=== PATIENT | female | born 1940 | race Caucasian/White ===

== ENCOUNTER 2020-03-07 19:11 | Inpatient (IN) | payer OTHER ==
[~2020-03-07] VITALS: Ht 165.1 cm; Wt 97.1 kg
[2020-03-07 19:13] VITALS: BP 148/119
[2020-03-07] MEDS ORDERED: ASA81BEC PO (19:37)
[2020-03-07] MEDS ORDERED: NORVASC 2.5 MG2.5 M1 PO (19:37)
[2020-03-07] MEDS ORDERED: LIPITOR 20 MG T20 M1 PO (19:38)
[2020-03-07] MEDS ORDERED: VOLTAREN GEL 1100 G2 TOP (19:40)
[2020-03-07] MEDS ORDERED: IRON325 M1 PO (19:41)
[2020-03-07] MEDS ORDERED: FLONASE 0.05%50 MCG NARES (19:42)
[2020-03-07] MEDS ORDERED: NEURONTIN 300M300 M2 PO (19:42)
[2020-03-07] MEDS ORDERED: HUMALOG KW100 UNIT/1 SUBQ (19:44)
[2020-03-07] MEDS ORDERED: NORCO 10-325 T1 EACH PO (19:44)
[2020-03-07] MEDS ORDERED: LEVO-T25 MCG PO (19:45)
[2020-03-07] MEDS ORDERED: IMDUR 60 MG TAB60 M1 PO (19:45)
[2020-03-07] MEDS ORDERED: COZAAR100 MG PO (19:46)
[2020-03-07] MEDS ORDERED: PROTONIX40 M2 PO (19:48)
[2020-03-07] MEDS ORDERED: NITROSTAT0.4 M1 SUBLING (19:48)
[2020-03-07] MEDS ORDERED: PHENERGAN 25 MG25 M1 PO (19:49)
[2020-03-07] MEDS ORDERED: PAXIL40 MG PO (19:49)
[2020-03-07] MEDS ORDERED: CARAFATE 1 GM TA1 GM PO (19:50)
[2020-03-07 19:51] LABS: HEMATOCRIT 50.9 % (37.0-47.0); HEMOGLOBIN 16.5 gm/dL (12.0-15.0); MCH 27.4 pg (26.0-34.0); MCHC 32.5 g/dL (28.0-37.0); MCV 84.4 fL (80.0-100.0); MPV 9.7 fl. (7.2-11.1); NUCLEATED RBCS 0 /100WBC; PLATELET COUNT* 495 thou/uL (150-400); RBC 6.02 mil/uL (4.20-5.00); RDW-CV 16.5 % (10.5-14.5)
[2020-03-07] MEDS ORDERED: ZANAFLEX4 M2 PO (19:52)
[2020-03-07 19:57] LABS: INR 1.1; PROTIME 11.1 Seconds (9.20-11.50)
[2020-03-07 20:01] LABS: CALCIUM 9.2 mg/dL (8.5-10.1); CREATININE 2.6 mg/dL (0.6-1.3); POTASSIUM 4.3 mmol/L (3.5-5.1)
[2020-03-07 20:04] LABS: ALBUMIN 3.8 g/dL (3.4-5.0); MAGNESIUM 1.6 mg/dL (1.8-2.4); TOTAL BILIRUBIN 0.6 mg/dL (<0.1-1.0)
[2020-03-07 20:19] LABS: ABSOLUTE LYMPHOCYTES 1.2 thou/uL (0.8-5.3); ABSOLUTE MONOCYTES 1.2 thou/uL (0.0-1.2); ABSOLUTE NEUTROPHILS 17.6 thou/uL (1.6-8.1)
[2020-03-07 20:20] LABS: LARGE PLATELETS OCCASIONAL; PLATELET ESTIMATE INCREASED
[2020-03-07 20:21] LABS: ANISOCYTOSIS 1+
[2020-03-07 21:37] LABS: BE -8.7 mmol/L (-2 to +3); PCO2 27.6 mmHg (35.0-45.0); PO2 86.5 mmHg (75.0-100.0); pH 7.354 (7.340-7.450)
[2020-03-07 21:43] LABS: URINE BLOOD 2+ (Negative); URINE CLARITY CLEAR; URINE COLOR YELLOW; URINE GLUCOSE-RANDOM 3+ (Negative); URINE KETONES 1+ (Negative); URINE LEUKOCYTES-REFLEX NEGATIVE (Negative); URINE NITRITE-REFLEX NEGATIVE (Negative); URINE PROTEIN 3+ (Negative); URINE SPECIFIC GRAVITY 1.025 (1.005-1.030); URINE UROBILINOGEN 0.2 E.U./dl (0.2-1.0)
[2020-03-07 21:50] LABS: ICTOTEST (BILI CONFIRMATORY) Negative (Negative); URINE BILIRUBIN 2+ (Negative)
[2020-03-07 21:52] LABS: HYALINE CASTS 0-3 Few /LPF (None Seen)
[2020-03-07 21:53] LABS: SQUAMOUS 0-3 Few /LPF (0-3)
[2020-03-07 21:54] LABS: AMORPHOUS URATES Moderate /LPF (None Seen); MUCUS None Seen strn/LPF (None Seen)
[2020-03-07 21:55] LABS: URINE RBC 0-2 Rare /HPF (0-2)
[2020-03-07 21:56] LABS: BACTERIA-REFLEX 1-9 Few /HPF (None Seen); URINE WBC-REFLEX 0-5 Rare /HPF (0-5)
[2020-03-07 22:49] VITALS: BP 169/101
[2020-03-07 23:20] VITALS: BP 172/104
[2020-03-08] VITALS (34 sets, daily range): BP systolic 95–210; BP diastolic 50–131
[2020-03-08] MEDS ORDERED: NORCO 5-325 TA1 EAC2 PO (00:04)
[2020-03-08] MEDS ORDERED: NOVOLIN R100 UNIT/1 SUBQ ×2 (00:06)
[2020-03-08] MEDS ORDERED: OMEPRAZOLE40 MG PO (00:07)
--- NOTE | 2020-03-08 07:28 | NUR ---
RECEIVED REPORT FROM SUPERVISOR PIPELINE MAINTENANCE ANTOINETTE AT 9175. PT ARRIVED TO UNIT AT 2300. UNABLE TO ANSWER ADMISSION QUESTIONS. SPOKE WITH PT VLADIMIR SHELLEY THIS AM AND ABLE TO ANSWER PT HX. STATES THAT PATIENT LIVES ALONE BUT JOSE J DOES CHECK ON HER FREQUENTLY. PT IS NORMALLY AAOX4 WITH FORGETFULNESS AT TIMES AND ANXIETY AT NIGHT. PT CONTINUES TO BE CONFUSED, UNABLE TO ANSWER QUESTIONS APPROPRIATELY. Q1H ACCU CHECKS COMPLETED. Q2H REPOSITIONING COMPLETED. SCDS IN PLACE. SR ON MULTIPLE NEEDLE STITCHER.
[2020-03-08 07:57] LABS: BE -4.8 mmol/L (-2 to +3); PCO2 31.8 mmHg (35.0-45.0); PO2 83.6 mmHg (75.0-100.0); pH 7.392 (7.340-7.450)
[2020-03-08 09:03] LABS: HEMATOCRIT 43.3 % (37.0-47.0); MCH 27.7 pg (26.0-34.0); MCHC 33.8 g/dL (28.0-37.0); MPV 8.7 fl. (7.2-11.1); RBC 5.29 mil/uL (4.20-5.00); RDW-CV 16.9 % (10.5-14.5); WBC 20.1 thou/uL (4.0-11.0)
[2020-03-08 09:04] LABS: HEMOGLOBIN 14.6 gm/dL (12.0-15.0)
[2020-03-08 09:16] LABS: CALCIUM 8.9 mg/dL (8.5-10.1); CREATININE 2.6 mg/dL (0.6-1.3); POTASSIUM 3.6 mmol/L (3.5-5.1)
--- NOTE | 2020-03-08 13:21 | EKG ---
[place] [address] ELECTROCARDIOGRAM REPORT Name: JAIRONTERESA Wilkerson Room: [address] ADM IN .R.#: [id number] Admission: 03/07/20 Attend Phys: Che Torre, Discharge: Date of : 42 Date of Service: 03/07/201922 Report #: [id number] THIS REPORT FOR: //name// [facility] ED Test Date: 2020-03-07 Test Time: 19:23:41 Pat Name: TERESA DE LA O Department: Room: [facility] Gender: F Manager Women: MALLORY : 1940 Requested By: Smitha Hardign Order Number: [id number] MD: Mack Leone Measurements Intervals [place] Rate: 114 P: 61 WV: 138 QRS: -15 QRSD: 82 T: 44 QT: 328 QTc: 452 Interpretive Statements Sinus tachycardia Borderline left axis deviation No previous ECG available for comparison Electronically Signed On 03-08-2020 13:20:54 CDT by Mack Loene [email or web address] <ELECTRONICALLY SIGNED> By: Mack Leone MD, [facility] 03/08/20 1320 1923 Mack Leone MD, [facility] /EPI
--- NOTE | 2020-03-08 14:19 | 2DMMODE ---
[place] [address] 2 D/M-MODE ECHOCARDIOGRAM Name: TERESA DE LA O Rock Room: [address] IN [facility]#: [id number] Admission: 03/07/20 Attend Phys: Che Torre, Discharge: Date of : 42 Date of Service: 03/08/20 1418 Report #: [id number] THIS REPORT FOR: cc: Taurus Manjarrez MD, Jonathan MD List[place],Ulises Ortez MD [facility] ~ APPROVED REPORT Study performed: 03/08/2020 10:24:47 EXAM: Comprehensive 2D, Doppler, and color-flow Echocardiogram Patient Location: In-Patient Room #: [facility] Status: routine BSA: 2.04 HR: 91 bpm BP: 188/105 mmHg Rhythm: NSR Other Information Study Quality: Good Indications elevated bnp 2D Dimensions IVSd: 13.15 (7-11mm) LVOT Diam: 19.09 (18-24mm) LVDd: 46.91 mm PWd: 10.20 (7-11mm) Ascending Ao: 30.58 (22-36mm) LVDs: 22.82 (25-40mm) Aortic Root: 27.50 mm Volumes Left Atrial Volume (Systole) LA ESV Index: 19.90 mL/m2 Aortic Valve AoV Peak Geraldo.: 1.88 m/s AO Peak Gr.: 14.08 mmHg LVOT Max P.94 mmHg AO Mean Gr.: 7.22 mmHg LVOT Mean P.30 mmHg LVOT Max V: 1.41 m/s AO V2 VTI: 34.75 cm LVOT Mean V: 0.82 m/s THU (VTI): 2.38 cm2 LVOT V1 VTI: 28.95 [place] [address] 2 D/M-MODE ECHOCARDIOGRAM Name: TERESA DE LA O Room: [address]#: [id number] Admission: 03/07/20 Attend Phys: Che Torre, Discharge: Date of : 42 Date of Service: 03/08/20 1418 Report #: [id number] Mitral Valve E/A Ratio: 0.59 MV Decel. Time: 333.58 ms MV E Max Geraldo.: 0.72 m/s MV PHT: 96.74 ms MVA (PHT): 2.27 cm2 TDI E/Lateral E': 9.00 E/Medial E': 10.29 Medial E' Geraldo.: 0.07 m/s Lateral E' Geraldo.: 0.08 m/s Pulmonary Valve PV Peak Geraldo.: 1.24 m/s PV Peak Gr.: 6.13 mmHg Left Ventricle The left ventricle is normal size. There is normal LV segmental wall motion. There is normal left ventricular wall thickness. Left ventricular systolic function is vigorous. LVEF is >70%. Grade I - abnormal relaxation pattern. Right Ventricle The right ventricle is normal size. The right ventricular systolic function is normal. Atria The left atrium size is normal. The right atrium size is normal. Aortic Valve Mild aortic valve sclerosis. No aortic regurgitation is present. There is no aortic valvular stenosis. Mitral Valve The mitral valve is normal in structure. There is no mitral valve regurgitation noted. No evidence of mitral valve stenosis. Tricuspid Valve The tricuspid valve is normal in structure. Trace tricuspid regurgitation. Unable to assess PA pressure. Pulmonic Valve The pulmonary valve is normal in structure. There is no pulmonic valvular regurgitation[place] [address] 2 D/M-MODE ECHOCARDIOGRAM Name: TERESA DE LA O Room: [address] IN [facility]#: [id number] Admission: 03/07/20 Attend Phys: Che Torre, Discharge: Date of : 42 Date of Service: 03/08/20 1418 Report #: [id number] The aortic root is normal in size. IVC is normal in size and collapses >50% with inspiration. Pericardium There is no pericardial effusion. <Conclusion> The left ventricle is normal size. There is normal left ventricular wall thickness. Left ventricular systolic function is vigorous. LVEF is >70%. Grade I - abnormal relaxation pattern. Trace tricuspid regurgitation. IVC is normal in size and collapses >50% with inspiration. <ELECTRONICALLY SIGNED> By: Ulises Pierce MD, FACC 03/08/20 1418 1418 1418 Ulises Pierce MD, FACC /INF
--- NOTE | 2020-03-08 16:00 | NUR ---
PT.HAVING EGD. SPOKE WITH DAUGHTER,JOSE J HERRERA ON PHONE EARLIER. SHE IS ALSO HER DPOA. SHE SAID HER MOM LIVES ALONE. SHE CHECKS ON HER FREQUENTLY. SHE SEEMS VERY SUPPORTIVE. SHE SAID PT. IS SOMEWHAT FORGETFULL BUT IS ALERT AND ORIENTED DURING THE DAY. AT NIGHT HER CONFUSION INCREASES AND SHE GETS NERVOUS/ANXIOUS AT TIMES. SHE USES A CANE FOR ASSIST WITH MOBILITY. WILL MOST LIKELY NEED SNF AT DISCHARGE. WILL DISCUSS WHEN MORE STABLE.
--- NOTE | 2020-03-08 18:47 | NUR ---
ASSESSMENT CHARTED. VSS. PATIENT ALERT BUT DISORIENTED X4. ABLE TO FOLLOW SIMPLE COMMANDS AND GIVE YES/NO ANSWERS. PATIENT IMPULSIVE AT TIMES AND REQUIRES BED ALARM. LEON PULLED OUT BY PATIENT. WILL CONTINUE TO MONITOR FOR RETENTION. PATIENT WENT FOR EGD AT 1530. PLEASE SEE PROCEDURE REPORT. PATIENT DOING WELL. VSS AT THIS TIME. PRN HYDRALAZINE AND SCHEDULED METOPROLOL GIVEN FOR HR/BP CONTROL. NO COMPLAINTS OF PAIN. Q2H TURNS. BATH GIVEN. NO OTHER COMPLAINTS DURING THIS SHIFT. DAUGHTER AT THE BEDSIDE MOST AFTERNOON SO SHE HAS BEEN UPDATED.
[2020-03-09] VITALS (41 sets, daily range): BP systolic 136–227; BP diastolic 54–140
--- NOTE | 2020-03-09 06:02 | NUR ---
PT. NOT PROGRESSING TOWARDS GOALS. PROVIDER NOTIFIED X2 ABOUT ELEVATED BLOOD PRESSURE, CLONIDINE PATCH ORDERED AND FENTANYL ORDERED. HYDRALAZINE AND METOPROLOL GIVEN. PT. IS UNABLE TO FORM SENTENCES SO UNABLE TO ASSESS WHERE AND IF PT. IS HURTING. WAS ABLE TO SAY "OUCH" "YES" "NO" AND "OHHH". WAS ABLE TO FOLLOW COMMANDS, EQUAL HYDROELECTRIC STATION OPERATOR STRENGTHS AND EQUAL PUPILS ASSESSED. WILL CONTINUE TO MONITOR.
[2020-03-09 07:38] LABS: HEMATOCRIT 42.7 % (37.0-47.0); HEMOGLOBIN 13.8 gm/dL (12.0-15.0); MCH 27.1 pg (26.0-34.0); MCHC 32.3 g/dL (28.0-37.0); MCV 84.1 fL (80.0-100.0); MPV 9.4 fl. (7.2-11.1); RBC 5.07 mil/uL (4.20-5.00); RDW-CV 16.8 % (10.5-14.5); WBC 16.4 thou/uL (4.0-11.0)
[2020-03-09 07:53] LABS: ALBUMIN 3.2 g/dL (3.4-5.0); CALCIUM 8.4 mg/dL (8.5-10.1); CREATININE 2.3 mg/dL (0.6-1.3); MAGNESIUM 1.5 mg/dL (1.8-2.4); POTASSIUM 3.2 mmol/L (3.5-5.1); TOTAL BILIRUBIN 0.5 mg/dL (<0.1-1.0); TOTAL PROTEIN 7.3 g/dL (6.4-8.2)
--- NOTE | 2020-03-09 12:43 | NUR ---
RIGHT BASILIC VESSEL ACCESSED FOR 5 PARAGUAYAN DUAL LUMEN PICC. LINE PRE-TRIMMED TO 38 CM AND ADVANCED TO THE ZERO EDITA WITH NO RESISTANCE MET. UPPER ARM CIRCUMFERENCE ABOVE INSERTION SITE= 14 1/2". SHERLOCK MAGNET AND 3CG CONFIRMATION OF TIP AT THE CAVOATRIAL JUNCTION APPRECIATED. GUIDEWIRE REMOVED, LINE FLUSHED AND INSERTION SITE DRESSED. REPORT GIVEN TO YADI.
[2020-03-09 13:14] LABS: CALCIUM 8.1 mg/dL (8.5-10.1); CREATININE 2.1 mg/dL (0.6-1.3); POTASSIUM 3.6 mmol/L (3.5-5.1)
--- NOTE | 2020-03-09 15:33 | NUR ---
ICU rounds: Covid negative. Treating PNA. Pt out of it, normally A&O. Pt leaving unit for a CT of head. UTI. EGD done yesterday, it was fine. Gastric emptying attempted today, Pt started gagging so they stopped it. Following,
--- NOTE | 2020-03-09 18:20 | NUR ---
ASSESSMENT CHARTED. VSS. BP MEDS INCREASED AND BLOOD PRESSURE IS TRENDING DOWN. BLOOD SUGARS WELL CONTROLLED WELL. RENAL CONSULTED. CT HEAD DONE. GASTRIC EMPTYING STUDY NOT SUCCESSFUL PATIENT STARTED GAGGING ON THE EGGS. ELECTROLYTES REPLACED PER RENAL-LABS IN AM. PICC LINE PLACED. NO OTHER EVENTS DURING THIS SHIFT.
[2020-03-10] VITALS (20 sets, daily range): BP systolic 123–183; BP diastolic 51–81
[2020-03-10 02:06] LABS: GLYCOHEMOGLOBIN (HGB A1C) 8.3 % (4.8-5.6)
[2020-03-10 05:22] LABS: HEMATOCRIT 37.3 % (37.0-47.0); HEMOGLOBIN 12.4 gm/dL (12.0-15.0); MCH 27.7 pg (26.0-34.0); MCHC 33.3 g/dL (28.0-37.0); MPV 9.1 fl. (7.2-11.1); RBC 4.49 mil/uL (4.20-5.00); RDW-CV 17.3 % (10.5-14.5); WBC 11.6 thou/uL (4.0-11.0)
[2020-03-10 05:47] LABS: ALBUMIN 2.7 g/dL (3.4-5.0); CALCIUM 8.3 mg/dL (8.5-10.1); CREATININE 1.9 mg/dL (0.6-1.3); MAGNESIUM 1.9 mg/dL (1.8-2.4); PHOSPHORUS* 2.6 mg/dL (2.5-4.9); POTASSIUM 3.1 mmol/L (3.5-5.1); TOTAL BILIRUBIN 0.5 mg/dL (<0.1-1.0); TOTAL PROTEIN 6.4 g/dL (6.4-8.2)
--- NOTE | 2020-03-10 05:53 | NUR ---
PT. SOMEWHAT PROGRESSING TOWARDS GOALS. STILL ABLE TO ONLY RESPOND YES/NO, BUT ABLE TO FOLLOW COMMANDS. BP'S REMAIN ELEVATED BUT CONTROLLED. RIGHT UPPER ARM PICC SALINE LOCKED AT THIS TIME. WILL CONTINUE TO MONITOR.
--- NOTE | 2020-03-10 13:30 | NUR ---
PATIENT BACK FROM IR PROCEDURE.
--- NOTE | 2020-03-10 14:12 | NUR ---
REPORT GIVEN TO RENATO GONZALEZ. ALL QUESTIONS ANSWERED. DAUGHTER CALLED TO LET HER KNOW PATIENT IS MOVING TO ROOM 206. PATIENT MOVED BY BED WITH NURSING STAFF AT THIS TIME.
--- NOTE | 2020-03-10 15:23 | NUR ---
ICU rounds: Tele status. Pt able to hold a conversation. Gastric emptying tomorrow. MRI today.
--- NOTE | 2020-03-10 18:49 | NUR ---
PT TRANSFERED [facility] ICU TO [facility]. ON RA. ACCUCHECK. INSULIN GIVEN AT DINER TIME. PT COMPLAINS OF NAUSEA/ ZOFFRAN GIVEN . ONETIME DOSE OF ZOFRAN ORDERED FOR 1899 WAS NOT GIVEN BECAUSE ZOFRAN WWAS ALREADY GIVEN. POTASSIUM REPLACED ORDERED. CALL LIGHT AT [facility]. WILL CONTINUE TO MONITOR
--- NOTE | 2020-03-10 18:56 | NUR ---
SBP 182.NEXT DOSE OF HYDRALIZINE DUE AT 2000
[2020-03-11] VITALS (7 sets, daily range): BP systolic 101–193; BP diastolic 47–92
[2020-03-11 05:18] LABS: HEMATOCRIT 37.9 % (37.0-47.0); HEMOGLOBIN 12.6 gm/dL (12.0-15.0); MCHC 33.2 g/dL (28.0-37.0); MCV 84.4 fL (80.0-100.0); MPV 9.6 fl. (7.2-11.1); RBC 4.49 mil/uL (4.20-5.00); RDW-CV 16.7 % (10.5-14.5); WBC 8.4 thou/uL (4.0-11.0)
[2020-03-11 06:16] LABS: CALCIUM 8.2 mg/dL (8.5-10.1); CREATININE 1.8 mg/dL (0.6-1.3); MAGNESIUM 1.7 mg/dL (1.8-2.4); POTASSIUM 3.9 mmol/L (3.5-5.1)
--- NOTE | 2020-03-11 11:52 | NUR ---
CM spoke with Pt regarding dispo, Pt hopeful to be able to return home at dc. Pt stated that her sister will come and stay with her post dc. PT/OT ordered. Pt may benefit from HH at dc, and Pt is open to HH if needed. If Pt dc over the weekend and needs HH, fax HH orders, facesheet and H&P to [facility] p:[phone] f:[phone]
[2020-03-12] VITALS: BP 106/64
[2020-03-12 04:33] VITALS: BP 184/64
[2020-03-12 06:00] LABS: CALCIUM 8.4 mg/dL (8.5-10.1); CREATININE 1.6 mg/dL (0.6-1.3); MAGNESIUM 1.6 mg/dL (1.8-2.4); POTASSIUM 3.9 mmol/L (3.5-5.1)
[2020-03-12 06:29] VITALS: BP 150/62
--- NOTE | 2020-03-12 07:02 | NUR ---
Pt persistently hypertensive throughout shift. Pt's bp was 190/75 at 2000 v/s 10 mg hydralazine IVP was administered. On reassessment BP had decreased to 131/75. At 0400 v/s pt's bp was 184/64. 10 mg hydralazine IVP was administered again. On reassessment bp was 150/62. Shift otherwise uneventful. Pt aox4, running SA on telemetry, respirations are even and unlabored on room air. Pt is medically stable at this time.
--- NOTE | 2020-03-12 10:52 | CON ---
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 The patient actually is admitted with altered mental status. I do not know what her baseline is, but she still appeared to be confused. Emergency Room note was reviewed. It looks like she had GI symptoms and that has been her main complaint. She had nausea, vomiting and she was vomiting blood, it looks like. She also has acute renal injury. Overall, it looks like she has improved since she came in. REVIEW OF SYSTEMS: A 14-point review of systems was carried out. She has GI issues. She has a history of diabetes, pneumonia and hyperglycemia and MRI was done mainly because of the patient's altered mental status. We will also try to reach the family to get some more history in this patient because the patient did not provide much history and this history is by reviewing the record. A 14-point review of system was carried out as best as could and this was her 14-point review of systems. PAST MEDICAL HISTORY: Positive for GI problem. FAMILY HISTORY: Noncontributory. SOCIAL HISTORY: We will try to find out when we talked to the family. PHYSICAL EXAMINATION: She is alert. She is responsive. When I asked her what month it is, she does not answer and basically smiled. Her speech looks intact. Cranial nerve and neuromuscular examination was carried out, the best I could. There was no focality. She did not do the cerebellar sign for me. There is no meningeal sign. There is no thyroid mass. Blood pressure is 182/81, respirations 17, pulse is 74, temperature is 97.6. LABORATORY DATA: White count is 11.6. 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 That needs to be addressed and it is usually a difficult problem. No Neurosurgery comes here and I will talk to the daughter tomorrow. It is an incidental [place] [address] CONSULTATION Name: TERESA DE LA O Room: [address] IN [facility]#: [id number] Admission: 03/07/20 Attend Phys: Che Torre MD Discharge: Date of : 42 Report #: [id number] be addressed, but the patient needs to stabilize first. Then, she needs a Neurosurgery consult. We will talk this over to the patient's daughter. Thank you very much. <ELECTRONICALLY SIGNED> By: Dwayne Stephen MD 03/12/20 1052 1920 [id number] Stephen MD /nt
[2020-03-12 13:36] VITALS: BP 148/72
[2020-03-12 17:47] VITALS: BP 185/69
[2020-03-12 20:00] VITALS: BP 157/63
[2020-03-13 00:42] VITALS: BP 179/65
[2020-03-13 04:00] VITALS: BP 181/74
[2020-03-13 06:25] VITALS: BP 166/69
--- NOTE | 2020-03-13 07:26 | NUR ---
Pt hypertensive at 0400 v/s bp was 185/69
--- NOTE | 2020-03-13 07:27 | NUR ---
Pt hypertensive at 0400 v/s bp was 185/69. 10 mg hydralazine IVP was administered. On reassessment bp was 166/69. At 0500 pt reported 10/10 head pain. 1 tab 5/325 hydrocondone and 1000 mg tylenol were administered. On reassessment pt reported no relief. Dr. Cid was paged and 50 mcg q4h prn was ordered and administered at 0650. Pt is aox3, running SR on telemetry, respirations are even and unlabored on room air. Pt is medically stable at this time.
[2020-03-13 12:24] VITALS: BP 157/73
--- NOTE | 2020-03-13 17:18 | NUR ---
patinet resting in bed. up with assist x1. aox4. medications per orders. vss and patient innoapparnet signs of distress. accuchecks with sliding scale insulin. hourly ronding completd for patient safety.
[2020-03-13 20:00] VITALS: BP 193/86
[2020-03-14] VITALS: BP 157/71
[2020-03-14 04:00] VITALS: BP 145/66
[2020-03-14 05:14] LABS: CALCIUM 8.4 mg/dL (8.5-10.1); CREATININE 1.5 mg/dL (0.6-1.3); MAGNESIUM 1.6 mg/dL (1.8-2.4); POTASSIUM 3.9 mmol/L (3.5-5.1)
--- NOTE | 2020-03-14 06:18 | NUR ---
ASSUMED PT CARE AT 1910. NURSING ASSESSMENT COMPLETED AT START OF SHIFT. SR ON PUTTY AND PATCH WORKER. PRN PAIN MEDICATION ADMINISTERED THIS SHIFT. SEE EMAR FOR DOCUMENTATION. HOURLY ROUNDING COMPLETED. HIGH FALL PRECAUTIONS IN PLACE.
--- NOTE | 2020-03-14 11:15 | NUR ---
CM spoke with Pt, Pt wants to dc home. CM discussed her limited ability level with PT and informed Pt that CM would speak with Pt's dtr. Per dtr, Pt's sister would only be able to stay with Pt in the evenings and dtr could help, but states that she works 3 days/week. Per dtr, Pt needs to be able to ambulate prior to return home. CM discussed possible need for SNF, dtr in agreement if Pt is unable to ambulate. Therapies went to work with Pt today and Pt adamently refused. Per weekend PN, Pt may need to transfer for neurosurgery, awaiting decision to initiate. Dtr is planning to call and make an outpt appt with neurosurgery. Dtr states that she just got Pt a commode. With dtr's permission, CM to fax SNF referrals to [place] and [facility], in anticipation that Pt will need rehab at or. Following.
[2020-03-14 12:12] VITALS: BP 156/58
--- NOTE | 2020-03-14 15:15 | H ---
[place] [address] HISTORY AND PHYSICAL Name: TERESA DE LA O Room: [address] IN M.R.#: [id number] Admission: 03/07/20 Attend Phys: Che Torre MD Discharge: Date of : 42 Report #: [id number] THIS REPORT FOR: //name// cc: Taurus Manjarrez MD, Jonathan MD ~ THIS REPORT FOR: //name// CC: Taurus Torre MD DATE OF SERVICE: 03/08/2020 REFERRING PHYSICIAN: Che Torre MD REASON FOR CONSULTATION: Recurrent nausea and vomiting. IMPRESSION: 1. Recurrent nausea and vomiting with history of coffee-ground emesis. 2. Dehydration secondary to recurrent nausea and vomiting with history of coffee-ground emesis. 3. Acute mental status changes secondary to recurrent nausea and vomiting with history of coffee-ground emesis and hyperglycemia and other issues. 4. Right lower lobe pneumonia. 5. Diabetes. 6. Chronic kidney disease, stage 3. 7. History of iron deficiency anemia with recent workup within the last year by [facility]. RECOMMENDATIONS: 1. We will keep the patient n.p.o. at this point in time. 2. We will proceed with upper endoscopy today. 3. We have the patient empirically on Protonix 40 mg IV q. 12 hours. 4. We will request all records from [facility] including upper and lower endoscopy, pathology reports and office visit within the last year for review. 5. We will also request records from [facility] from August of this year when she was hospitalized for similar type problems. 6. Eventually, she will likely need to have a 4-hour gastric emptying scan due to these issues with nausea, vomiting, early satiety and weight loss. I have discussed the plans with the patient's daughter and she is agreeable for me to proceed. HISTORY OF PRESENT ILLNESS: The patient is a 79-year-old white female who was admitted to the hospital with mental status changes and [place]. [place] [address] HISTORY AND PHYSICAL Name: TERESA DE LA O Rock Room: [address] IN [facility].#: [id number] Admission: 03/07/20 Attend Phys: Che Torre MD Discharge: Date of : 42 Report #: [id number] been able to give us much of any history, so I contacted her daughter to get some help. The patient has apparently not been doing well and has had some issues with recurrent nausea, vomiting and her blood sugars have been out of control. There was some question that she may have had some hematemesis as well. Her daughter states that she has had issues with her stomach and having problems with throwing up. This has been making her blood sugars out of control as well. She cannot give much of a history and answers everything yes. The patient already has undergone evaluation by [facility] within the last year including upper and lower endoscopies for evaluation of her anemia and I will request old records. In talking with the daughter, the patient had been having problem with nausea, vomiting and was thought to possibly related to her lap band. For this reason, it was subsequently removed and she still had issues with nausea and vomiting. ALLERGIES: None. MEDICATIONS: At home, which has been confirmed with the daughter include amlodipine, aspirin, atorvastatin, diclofenac gel, ferrous sulfate, Flonase, Neurontin, Humalog insulin, Imdur, levothyroxine, Cozaar, Nitrostat, Protonix twice daily, Paxil, Carafate, Zanaflex. She has been taking some Phenergan with nausea and vomiting. She takes Cerro. She also takes Novolin insulin. PAST MEDICAL HISTORY: Remarkable for underlying hypertension, hyperlipidemia, diabetes, chronic anemia. She has a problem with peripheral neuropathy, hypothyroidism, history of arthritis, gout. SOCIAL HISTORY: The patient is a smoker, smokes about half pack per day, does not drink alcohol. FAMILY HISTORY: Negative. PHYSICAL EXAMINATION: GENERAL: Revealed a 79-year-old white female who is in no distress. She is confused. She cannot answer questions reliably. CARDIOPULMONARY: Revealed regular rate and rhythm. LUNGS: Clear with diminished breath sounds at the right base. ABDOMEN: Soft and not tender. No rebound or guarding noted. LABORATORY DATA: From the revealed white count of 20.1, hemoglobin 14.6, platelet count 421,000, MCV is 82 and RDW 16.9. When she was admitted last night, her hemoglobin was 16.5, so she was definitely hemoconcentrated. Her sodium 139, potassium 3.6, chloride 101, bicarbonate is 24, BUN is 45 and creatinine 2.6 for GFR of only 18. Bilirubin on admission was 0.6, alkaline phosphatase was 147, AST 11, ALT 18, albumin 3.8, total protein was 9.0, but that was erroneous as the patient [place] [address] HISTORY AND PHYSICAL Name: TERESA DE LA O Room: [address]#: [id number] Admission: 03/07/20 Attend Phys: Che Torre MD Discharge: Date of : 42 Report #: [id number] scan of the abdomen and pelvis performed on 03/07 was reviewed. Liver appeared normal. Bile ducts are normal. Gallbladder could not be seen. The pancreas, spleen appeared normal. There appeared to be some mild thickening of the adrenal gland suggesting hyperplasia. Kidneys were unrevealing except for a small cyst. There was a small hiatal hernia. Otherwise, the examination was fairly unremarkable. DISCUSSION: At the present time, the patient has had recurrent nausea and vomiting. We will proceed with upper endoscopy today and likely need an emptying scan as well. <ELECTRONICALLY SIGNED> By: Jeramy Peacock DO 03/14/20 1515 1917 99Jeramy Peacock DO /nt
[2020-03-14 16:38] VITALS: BP 152/77
--- NOTE | 2020-03-14 18:15 | NUR ---
PATIENT RESTING IN BED. UP WITH ASSIST X1. NEW MEDICATIONS FOR GOUT FLARE. VSS. SEDRICKAGUSTO STILL REPORTS DIZZINESS WITH MOTION. AWAITING INSUR AUTH FOR DISCHARGE TO [place]. HOURLY ROUNDING FOR PATIENT SAFETY.
[2020-03-14 20:00] VITALS: BP 131/61
[2020-03-14 23:25] VITALS: BP 150/83
[2020-03-15 04:00] VITALS: BP 164/67
[2020-03-15 06:32] LABS: HEMATOCRIT 32.5 % (37.0-47.0); HEMOGLOBIN 10.8 gm/dL (12.0-15.0); MCH 27.9 pg (26.0-34.0); MCHC 33.1 g/dL (28.0-37.0); MCV 84.4 fL (80.0-100.0); MPV 9.9 fl. (7.2-11.1); RBC 3.85 mil/uL (4.20-5.00); RDW-CV 16.9 % (10.5-14.5); WBC 12.5 thou/uL (4.0-11.0)
--- NOTE | 2020-03-15 06:46 | NUR ---
RECEIVED REPORT AND ASSUMED CARE AT 1900.VSS. CARDIAC MONITORING IN PLACE DENIES COMPLAINTS OF PAIN. ASSESSMENT COMPLETED CHARTED. NO ACUTE CHANGES THROUGH THE NIGHT R/T PT CONDITION. PATIENT REPORTS FEET FEELING BETTER THIS MORNING. PT REQUESTED TO HAVE LEON REMOVED, ATTEMPTED TO PULL OUT ON HER OWN, NURSING REMOVED LEON. BED LOCKED IN LOWEST POSITION, CALL LIGHT WITHIN REACH. BED ALARM ON. HOURLY ROUNDING COMPLETED AND ALL NEEDS MET.
[2020-03-15 08:00] VITALS: BP 151/70
--- NOTE | 2020-03-15 12:07 | NUR ---
Continue to await insurance auth for skilled.
[2020-03-15 12:39] VITALS: BP 123/69
[2020-03-15] MEDS ORDERED: ERYTHROMYCIN250 M1 PO (14:11)
[2020-03-15] MEDS ORDERED: TRANSDERM-SCOP1 EACH TRANSDERM (14:11)
--- NOTE | 2020-03-15 18:14 | NUR ---
PT. AOX4, DENIES PAIN, VSS, SR ON MONITOR. D/C ORDERS RECEIVED. DISCHARGE SUMMARY AND CARENOTES PROVIDED. MEDS, ACTIVITY, DIET RESTRICTIONS EXPLAINED TO PT AND DAUGHTER, AND VERBALIZED UNDERSTANDING. PICC DCED WITHOUT COMPLICATIONS. PT. LEFT VIA WC TO ER ENTRANCE AND PICKED UP BY DAUGHTER IN PERSONAL CAR. PT. IN STABLE CONDITION AT TIME OF DC.
--- NOTE | 2020-03-26 13:14 | CON ---
[address] [address] CONSULTATION Name: TERESA DE LA O Room: [address] IN .R.#: [id number] Admission: 03/07/20 Attend Phys: Che Torre MD Discharge: 03/15/20 Date of : 42 Report #: [id number] THIS REPORT FOR: //name// cc: Taurus Manjarrez MD, Jonathan MD ~ THIS REPORT FOR: //name// CC: Taurus Torre CONSULTING PHYSICIAN: Dr. Torre. REASON FOR CONSULTATION: Acute kidney injury. HISTORY OF PRESENT ILLNESS: A 79-year-old female admitted with altered mental status and elevated creatinine of 2.6. Unknown if she has any underlying kidney disease. She is a very limited historian at this time. She has some dysphagia, had an EGD done and GI is currently following. She appears to be comfortable, does not have any complaints at present time. She was started on antibiotics for possible pneumonia. REVIEW OF SYSTEMS: Constitutional, psych, heme, eyes, ENT, respiratory, cardiac, GI, , endocrine, all negative except as documented above. PAST MEDICAL HISTORY: Diabetes, hypertension, osteoarthritis, dyslipidemia, gout. SOCIAL HISTORY: Former smoker. FAMILY HISTORY: Not pertinent in this 79-year-old female. CURRENT MEDICATIONS: Reviewed. PHYSICAL EXAMINATION: VITAL SIGNS: Blood pressure is 165/79, pulse 68, respirations 14, temperature 36.3. GENERAL: No acute distress. EYES: Open. EARS: Externally normal. NECK: Supple. CARDIOVASCULAR: Regular rate. LUNGS: No crackles. ABDOMEN: Soft. MUSCULOSKELETAL: Nontender. PSYCHIATRIC: Awake, not oriented. LABORATORY DATA: Sodium 145, potassium 3.6, chloride 109, bicarbonate 27, BUN [facility] [address] [place] [address] CONSULTATION Name: TERESA DE LA O Rock Room: [address]#: [id number] Admission: 03/07/20 Attend Phys: Che Torre MD Discharge: 03/15/20 Date of : 42 Report #: [id number], creatinine 2.1, glucose 176, calcium 8.1. White cell count 16.4, hemoglobin 13.8, platelets 397. ASSESSMENT: 1. Acute kidney injury with an admission creatinine of 2.6 in the setting of pneumonia, ARB, EF was greater than 70%. CT abdomen did not reveal any hydronephrosis. Baseline creatinine is unknown. UA shows 3+ protein, 2+ blood. 2. Anion gap metabolic acidosis with respiratory alkalosis on admission with an ABG of 7.39, 28 and 15 on 03/07/2020 with an anion gap of 23 and a normal delta gap. 3. Insulin-dependent diabetes. 4. Right 8 mm renal cysts without complex features noted on CT scan. 5. Pneumonia. 6. Hypertension. 7. Osteoarthritis. PLAN: 1. Currently on antibiotics. 2. She has been cleared for a diet. We will not administer any IV fluids at this time. 3. Check CK. 4. Check urine protein to creatinine ratio. 5. Hypokalemia. Had potassium of 3.2 earlier, this was replaced. 6. Hypernatremia. She was given an infusion of D5W and her sodium is now better. 7. Hypomagnesemia. Magnesium was replaced. 8. We will check labs again in the a.m. and continue to follow along with you. Thank you for requesting my opinion in the care and management of this patient. <ELECTRONICALLY SIGNED> By: Nathalie Bolden MD 03/26/20 1314 1521 [id number] Bolden MD /nt
== END 2020-03-15 16:56 | disposition home health service (06) | DRG 871 ==
LOC: M.ERS 19:11 → M.ICU 21:27 → M.2W 21:27 → M.TBA-ER 21:27 → M.ICU 23:10 → M.2W 03-10 14:40
PROVIDERS: Emergency Medicine; Internal Medicine; Internal Medicine Gastroenterology; ADMIT Internal Medicine; ATTEND Internal Medicine
DX: A41.9 Sepsis, unspecified organism (principal); E11.10 Type 2 diabetes mellitus with ketoacidosis without coma; J15.6 Pneumonia due to other Gram-negative bacteria; G93.41 Metabolic encephalopathy; G93.5 Compression of brain; I50.33 Acute on chronic diastolic (congestive) heart failure; N17.9 Acute kidney failure, unspecified; E87.0 Hyperosmolality and hypernatremia; K92.0 Hematemesis; E87.4 Mixed disorder of acid-base balance; G95.20 Unspecified cord compression; N39.0 Urinary tract infection, site not specified; R13.10 Dysphagia, unspecified; E78.5 Hyperlipidemia, unspecified; M10.9 Gout, unspecified; N28.1 Cyst of kidney, acquired; E87.6 Hypokalemia; E83.42 Hypomagnesemia; E86.0 Dehydration; N18.3 Chronic kidney disease, stage 3 (moderate); E11.22 Type 2 diabetes mellitus with diabetic chronic kidney disease; E11.42 Type 2 diabetes mellitus with diabetic polyneuropathy; D50.9 Iron deficiency anemia, unspecified; E11.43 Type 2 diabetes mellitus with diabetic autonomic (poly)neuropathy; F03.90 Unspecified dementia, unspecified severity, without behavioral disturbance, psychotic disturbance, mood disturbance, and anxiety; K21.0 Gastro-esophageal reflux disease with esophagitis; K31.89 Other diseases of stomach and duodenum; K31.84 Gastroparesis; Z20.828 Contact with and (suspected) exposure to other viral communicable diseases; E03.9 Hypothyroidism, unspecified; K44.9 Diaphragmatic hernia without obstruction or gangrene; Z79.899 Other long term (current) drug therapy; D32.1 Benign neoplasm of spinal meninges; Z79.82 Long term (current) use of aspirin; Z79.4 Long term (current) use of insulin; Z87.891 Personal history of nicotine dependence

== ENCOUNTER 2020-08-09 12:40 | Emergency (ER) | payer OTHER ==
[~2020-08-09] VITALS: Ht 157.5 cm; Wt 99.8 kg
[~2020-08-09 12:40] MED LIST: ASA81BEC PO; CARAFATE 1 GM TA1 GM PO; COZAAR100 MG PO; ERYTHROMYCIN250 M1 PO; FLONASE 0.05%50 MCG NARES; HUMALOG KW100 UNIT/1 SUBQ; IMDUR 60 MG TAB60 M1 PO; IRON325 M1 PO; LEVO-T25 MCG PO; LIPITOR 20 MG T20 M1 PO; NEURONTIN 300M300 M2 PO; NITROSTAT0.4 M1 SUBLING; NORCO 10-325 T1 EACH PO; NORCO 5-325 TA1 EAC2 PO; NORVASC 2.5 MG2.5 M1 PO; NOVOLIN R100 UNIT/1 SUBQ; OMEPRAZOLE40 MG PO; PAXIL40 MG PO; PHENERGAN 25 MG25 M1 PO; PROTONIX40 M2 PO; TRANSDERM-SCOP1 EACH TRANSDERM; VOLTAREN GEL 1100 G2 TOP; ZANAFLEX4 M2 PO
[2020-08-09 14:07] LABS: ABSOLUTE EOSINOPHILS 0.1 thou/uL (0.0-0.7); ABSOLUTE LYMPHOCYTES 0.9 thou/uL (0.8-5.3); ABSOLUTE MONOCYTES 0.7 thou/uL (0.0-1.2); ABSOLUTE NEUTROPHILS 5.5 thou/uL (1.6-8.1); BASOPHILS 0.4 %; EOSINOPHILS 1.5 %; HEMATOCRIT 46.6 % (37.0-47.0); HEMOGLOBIN 15.1 gm/dL (12.0-15.0); LYMPHOCYTES 12.7 %; MCH 26.9 pg (26.0-34.0); MCHC 32.4 g/dL (28.0-37.0); MCV 82.9 fL (80.0-100.0); MONOCYTES 9.2 %; MPV 8.3 fl. (7.2-11.1); NUCLEATED RBCS 0 /100WBC; PLATELET COUNT* 309 thou/uL (150-400); POLYS 76.2 %; RBC 5.63 mil/uL (4.20-5.00); RDW-CV 16.4 % (10.5-14.5); WBC 7.2 thou/uL (4.0-11.0)
[2020-08-09 14:13] LABS: CALCIUM 9.1 mg/dL (8.5-10.1); CREATININE 1.9 mg/dL (0.6-1.3); POTASSIUM 3.2 mmol/L (3.5-5.1)
[2020-08-09 14:17] LABS: ALBUMIN 3.4 g/dL (3.4-5.0); TOTAL BILIRUBIN 0.4 mg/dL (<0.1-1.0); TOTAL PROTEIN 8.1 g/dL (6.4-8.2)
[2020-08-09] MEDS ORDERED: ONDANSETRON HCL4 M2 PO (16:01)
[2020-08-09] MEDS ORDERED: BENTYL 20 MG TA20 M1 PO (16:01)
[2020-08-09 16:07] LABS: URINE BLOOD NEGATIVE (Negative); URINE CLARITY CLEAR; URINE COLOR YELLOW; URINE GLUCOSE-RANDOM NEGATIVE (Negative); URINE KETONES TRACE (Negative); URINE LEUKOCYTES-REFLEX TRACE (Negative); URINE NITRITE-REFLEX NEGATIVE (Negative); URINE PROTEIN 2+ (Negative); URINE SPECIFIC GRAVITY >= 1.030 (1.005-1.030); URINE UROBILINOGEN 0.2 E.U./dl (0.2-1.0)
[2020-08-09 16:17] LABS: ICTOTEST (BILI CONFIRMATORY) Negative (Negative); URINE BILIRUBIN 1+ (Negative)
[2020-08-09 16:34] VITALS: BP 170/66
--- NOTE | 2020-08-10 18:19 | EKG ---
[place] [address] ELECTROCARDIOGRAM REPORT Name: TERESA DE LA O Room: [facility]#: [id number] Admission: 08/09/20 Attend Phys: Discharge: 08/09/20 Date of : 42 Date of Service: 08/09/20 1446 Report #: [id number] THIS REPORT FOR: //name// [facility] ED Test Date: 2020-08-09 Test Time: 14:46:30 Pat Name: TERESA DE LA O Department: Room: Gender: F Enterprise Resource Planning Consultant: [facility] : 1940 Requested By: Komal Arnold Order Number: [id number] MD: Terence Snell Measurements Intervals [place] Rate: 79 P: 85 [place]: 142 QRS: 3 QRSD: 112 T: 10 QT: 410 QTc: 471 Interpretive Statements Sinus rhythm Probable left atrial enlargement Borderline intraventricular conduction delay Compared to ECG 03/07/2020 19:23:41 Sinus tachycardia no longer present Electronically Signed On 08-10-2020 18:19:04 PULP MAKING PLANT OPERATOR by Terence Snell [email or web address] <ELECTRONICALLY SIGNED> By: Evangelina Snell MD, [facility] 08/10/20 1819 1446 1446 Evangelina Snell MD, [facility] /EPI
== END 2020-08-09 16:36 | disposition home or self-care (01) ==
LOC: M.ERS 12:40
PROVIDERS: Nurse Practitioner Family
DX: E86.0 Dehydration (principal); Z20.828 Contact with and (suspected) exposure to other viral communicable diseases; R11.2 Nausea with vomiting, unspecified; R10.9 Unspecified abdominal pain; R19.7 Diarrhea, unspecified; E11.9 Type 2 diabetes mellitus without complications; M10.9 Gout, unspecified; E78.5 Hyperlipidemia, unspecified; I10 Essential (primary) hypertension; Z79.82 Long term (current) use of aspirin; Z79.899 Other long term (current) drug therapy; Z79.4 Long term (current) use of insulin

== ENCOUNTER → 2020-10-03 | Outpatient (CLI) | payer OTHER ==
[~2020-10-03] MED LIST changes: +BENTYL 20 MG TA20 M1 PO; +ONDANSETRON HCL4 M2 PO
[2020-10-03 13:43] LABS: CREATININE 1.5 mg/dL (0.6-1.3)
== END ==
LOC: M.LAB 13:08 → M.MRI 13:30 → M.LAB 13:30 → M.MRI 14:30
PROVIDERS: ATTEND Neurological Surgery
DX: D49.6 Neoplasm of unspecified behavior of brain (principal); R22.0 Localized swelling, mass and lump, head; G93.89 Other specified disorders of brain

== ENCOUNTER → 2021-03-09 | Outpatient (CLI) | payer OTHER | LOC: M.MRI 02-07 11:30 | PROVIDERS: ATTEND Neurological Surgery | DX: S22.088A Other fracture of T11-T12 vertebra, initial encounter for closed fracture (principal); M47.815 Spondylosis without myelopathy or radiculopathy, thoracolumbar region; X58.XXXD Exposure to other specified factors, subsequent encounter ==

== ENCOUNTER 2021-04-03 13:56 | Inpatient (IN) | payer OTHER ==
[~2021-04-03] VITALS: Ht 157.5 cm; Wt 91.2 kg
[2021-04-03 14:05] VITALS: BP 167/100
--- NOTE | 2021-04-03 14:36 | EKG ---
[place] [address] ELECTROCARDIOGRAM REPORT Name: TERESA DE LA O Room: [facility]#: [id number] Admission: 04/03/21 Attend Phys: Discharge: Date of : 42 Date of Service: 04/03/21 1420 Report #: [id number] THIS REPORT FOR: //name// [facility] ED Test Date: 2021-04-03 Test Time: 14:20:12 Pat Name: TERESA DE LA O Department: Room: Gender: Manager Hardware: : 1940 Requested By: Herbert Arias Order Number: [id number] MD: Mack Leone Measurements Intervals [place] Rate: 88 P: 63 [place]: 149 QRS: 16 QRSD: 179 T: 42 QT: 377 QTc: 457 Interpretive Statements Sinus rhythm septal q waves Probable left atrial enlargement Anterior Q waves Compared to ECG 08/09/2020 14:46:30 Q waves now present Electronically Signed On 04-03-2021 14:36:46 CDT by Mack Leone [email or web address] <ELECTRONICALLY SIGNED> By: Mack Leone MD, [facility] 04/03/21 1436 1420 1420 Mack Leone MD, [facility] /EPI
[2021-04-03 14:41] LABS: ABSOLUTE BASOPHILS 0.1 thou/uL (0.0-0.2); ABSOLUTE EOSINOPHILS 0.1 thou/uL (0.0-0.7); ABSOLUTE LYMPHOCYTES 1.4 thou/uL (0.8-5.3); ABSOLUTE MONOCYTES 0.7 thou/uL (0.0-1.2); ABSOLUTE NEUTROPHILS 10.3 thou/uL (1.6-8.1); BASOPHILS 0.5 %; EOSINOPHILS 0.7 %; HEMATOCRIT 54.9 % (37.0-47.0); HEMOGLOBIN 17.7 gm/dL (12.0-15.0); LYMPHOCYTES 10.9 %; MCH 28.3 pg (26.0-34.0); MCHC 32.2 g/dL (28.0-37.0); MCV 87.9 fL (80.0-100.0); MONOCYTES 5.6 %; MPV 8.8 fl. (7.2-11.1); NUCLEATED RBCS 0 /100WBC; PLATELET COUNT* 273 thou/uL (150-400); POLYS 82.3 %; RBC 6.25 mil/uL (4.20-5.00); RDW-CV 15.2 % (10.5-14.5); WBC 12.6 thou/uL (4.0-11.0)
[2021-04-03 14:49] LABS: CREATININE 1.7 mg/dL (0.6-1.3); POTASSIUM 4.3 mmol/L (3.5-5.1)
[2021-04-03 14:54] LABS: TOTAL BILIRUBIN 1.2 mg/dL (<0.1-1.0); TOTAL PROTEIN 7.7 g/dL (6.4-8.2)
[2021-04-03 20:33] LABS: URINE BLOOD NEGATIVE (Negative); URINE COLOR YELLOW; URINE GLUCOSE-RANDOM NEGATIVE (Negative); URINE KETONES 2+ (Negative); URINE LEUKOCYTES-REFLEX 1+ (Negative); URINE NITRITE-REFLEX NEGATIVE (Negative); URINE PROTEIN 2+ (Negative); URINE SPECIFIC GRAVITY >= 1.030 (1.005-1.030)
[2021-04-03 20:34] LABS: ICTOTEST (BILI CONFIRMATORY) Negative (Negative); URINE BILIRUBIN 2+ (Negative); URINE CLARITY CLOUDY
[2021-04-03 20:36] VITALS: BP 184/87
[2021-04-03 20:42] LABS: SQUAMOUS 4-10 Moderate /LPF (0-3); URINE RBC None Seen /HPF (0-2)
[2021-04-03 20:43] LABS: BACTERIA-REFLEX 1-9 Few /HPF (None Seen); CASTS None Seen /LPF (None Seen); CRYSTALS None Seen /LPF (None Seen); MUCUS 0-3 Light strn/LPF (None Seen)
[2021-04-04] VITALS (7 sets, daily range): BP systolic 142–200; BP diastolic 59–89
[2021-04-04 04:14] LABS: HEMATOCRIT 48.3 % (37.0-47.0); HEMOGLOBIN 15.8 gm/dL (12.0-15.0); MCH 29.3 pg (26.0-34.0); MCHC 32.7 g/dL (28.0-37.0); MCV 89.6 fL (80.0-100.0); MPV 9.1 fl. (7.2-11.1); RBC 5.39 mil/uL (4.20-5.00); WBC 8.4 thou/uL (4.0-11.0)
[2021-04-04 04:16] LABS: CALCIUM 9.3 mg/dL (8.5-10.1); CREATININE 1.4 mg/dL (0.6-1.3); POTASSIUM 3.9 mmol/L (3.5-5.1)
[2021-04-05] VITALS: BP 128/45
[2021-04-05 04:00] VITALS: BP 102/46
[2021-04-05 04:38] LABS: CALCIUM 8.5 mg/dL (8.5-10.1); CREATININE 1.6 mg/dL (0.6-1.3); HEMATOCRIT 39.9 % (37.0-47.0); MPV 8.6 fl. (7.2-11.1); POTASSIUM 3.9 mmol/L (3.5-5.1); RBC 4.54 mil/uL (4.20-5.00); RDW-CV 15.1 % (10.5-14.5); WBC 7.4 thou/uL (4.0-11.0)
[2021-04-05 04:44] LABS: HEMOGLOBIN 13.2 gm/dL (12.0-15.0)
[2021-04-05 09:00] VITALS: BP 183/76
[2021-04-05] MEDS ORDERED: CEFDINIR300 MG PO (09:20)
[2021-04-05 15:18] VITALS: BP 183/76
--- NOTE | 2021-04-05 15:20 | NUR ---
CM ASSESSMENT: PT A&O, AND NORMALLLY INDEPENDENT WITH ADL'S. PT REDIDES AT HOME WITH HER DTR AND SHE ASSIST NEEDED WITH CARES, AND DOES ALL COOKING, CHEMICAL ANALYST AND PROVIDES TRANSPORTATION FOR THE PT. PT USES A CANE FOR MOBILITY. PT HAS 0 HX OF SNF. PT HAS PAST HX OF HH WITH [facility]. NO CM D/C PLANNING NEEDS ANTICIAPTED. PT RECOMMENDING HH. HOWEVER PT'S DTR INFORMS THAT THIS MAY NOT BE NEEDED THE PT IS USUALLY NON-COMPLIANT WITH HH AND REFUSES TO PARTICIPATES WITH THERAPIES. CM WILL REMAIN AVAILABLE TO ASSIST AND FOLLOW NEEDED.
== END 2021-04-05 16:03 | disposition home or self-care (01) | DRG 394 ==
LOC: M.ERS 13:56 → M.2W 16:44 → M.TBA-ER 16:44 → M.2W 04-04 09:28
PROVIDERS: Family Medicine; ADMIT Internal Medicine; ATTEND Internal Medicine
DX: K52.0 Gastroenteritis and colitis due to radiation (principal); N39.0 Urinary tract infection, site not specified; R65.10 Systemic inflammatory response syndrome (SIRS) of non-infectious origin without acute organ dysfunction; I13.0 Hypertensive heart and chronic kidney disease with heart failure and stage 1 through stage 4 chronic kidney disease, or unspecified chronic kidney disease; N17.9 Acute kidney failure, unspecified; I50.32 Chronic diastolic (congestive) heart failure; D49.6 Neoplasm of unspecified behavior of brain; E11.43 Type 2 diabetes mellitus with diabetic autonomic (poly)neuropathy; K31.84 Gastroparesis; E11.9 Type 2 diabetes mellitus without complications; E78.5 Hyperlipidemia, unspecified; N18.2 Chronic kidney disease, stage 2 (mild); E11.22 Type 2 diabetes mellitus with diabetic chronic kidney disease; M10.9 Gout, unspecified; M19.90 Unspecified osteoarthritis, unspecified site; D50.9 Iron deficiency anemia, unspecified; Z20.822 Contact with and (suspected) exposure to COVID-19; Z92.3 Personal history of irradiation; Z90.710 Acquired absence of both cervix and uterus; Z79.82 Long term (current) use of aspirin; Z79.899 Other long term (current) drug therapy; Z79.4 Long term (current) use of insulin

== ENCOUNTER 2021-05-17 21:38 | Observation (INO) | payer OTHER ==
[~2021-05-17] VITALS: Ht 175.3 cm; Wt 95.8 kg
--- NOTE | ~2021-05-17 | PROC ---
[facility] [address] [place] [address] PROCEDURE REPORT Name: TERESA DE LA O Room: [address] Minerva Stearns#: [id number] Admission: 05/18/21 Attend Phys: Natasha Garza Discharge: Date of : 42 Report #: [id number] THIS REPORT FOR: cc: Taurus Manjarrez MD, Jonathan MD [facility],Medical Records Staff ~ For GI report, please see the Provation report in Perceptive 7 content. By: [id number] Records Staff MARILYN /ABNER
[~2021-05-17 21:38] MED LIST changes: +CEFDINIR300 MG PO
[2021-05-17 21:49] VITALS: BP 229/114
[2021-05-17 21:55] LABS: URINE BLOOD 1+ (Negative); URINE CLARITY CLEAR; URINE COLOR YELLOW; URINE GLUCOSE-RANDOM NEGATIVE (Negative); URINE KETONES 2+ (Negative); URINE LEUKOCYTES-REFLEX NEGATIVE (Negative); URINE NITRITE-REFLEX NEGATIVE (Negative); URINE PROTEIN 3+ (Negative)
[2021-05-17 21:59] LABS: ICTOTEST (BILI CONFIRMATORY) Negative (Negative); URINE BILIRUBIN 2+ (Negative)
[2021-05-17 22:03] LABS: SQUAMOUS 4-10 Moderate /LPF (0-3)
[2021-05-17 22:04] LABS: BACTERIA-REFLEX 1-9 Few /HPF (None Seen); CASTS None Seen /LPF (None Seen); CRYSTALS None Seen /LPF (None Seen); MUCUS 4-6 Moderate strn/LPF (None Seen); URINE RBC 3-10 Few /HPF (0-2); URINE WBC-REFLEX 0-5 Rare /HPF (0-5)
[2021-05-17 22:30] LABS: ABSOLUTE BASOPHILS 0.1 thou/uL (0.0-0.2); ABSOLUTE LYMPHOCYTES 1.1 thou/uL (0.8-5.3); ABSOLUTE MONOCYTES 0.6 thou/uL (0.0-1.2); ABSOLUTE NEUTROPHILS 8.9 thou/uL (1.6-8.1); BASOPHILS 0.6 %; EOSINOPHILS 0.5 %; HEMATOCRIT 48.6 % (37.0-47.0); HEMOGLOBIN 16.8 gm/dL (12.0-15.0); MCH 30.1 pg (26.0-34.0); MCHC 34.7 g/dL (28.0-37.0); MCV 86.9 fL (80.0-100.0); MONOCYTES 5.9 %; MPV 8.7 fl. (7.2-11.1); NUCLEATED RBCS 0 /100WBC; PLATELET COUNT* 418 thou/uL (150-400); RBC 5.59 mil/uL (4.20-5.00); WBC 10.7 thou/uL (4.0-11.0)
[2021-05-17 22:41] LABS: CALCIUM 9.8 mg/dL (8.5-10.1); CREATININE 1.3 mg/dL (0.6-1.3); POTASSIUM 3.4 mmol/L (3.5-5.1)
[2021-05-17 22:45] LABS: ALBUMIN 3.9 g/dL (3.4-5.0); MAGNESIUM 1.5 mg/dL (1.8-2.4); TOTAL BILIRUBIN 0.7 mg/dL (<0.1-1.0); TOTAL PROTEIN 8.3 g/dL (6.4-8.2)
[2021-05-18 02:30] VITALS: BP 190/99
[2021-05-18 02:34] VITALS: BP 158/75
[2021-05-18 04:00] VITALS: BP 151/111
--- NOTE | 2021-05-18 07:00 | NUR ---
REPORT RECIEVED FROM ER. ADMISSION DOCUMENTED. PT RESPONDS TO NAME, BUT IS UNABLE TO ANSWER ANY QUESTIONS WHEN ASKED. ATTEMPTED TO CALL PTS DAUGHTER FOR REST OF ADMISSION AND MED REC, MESSAGE LEFT, NO RETURN CALL. PT DENIES PAIN. INCONTINENT OF BOWEL AND BLADDER. FALL PRECAUTIONS IN PLACE. REPORT GIVEN TO ONCOMING NURSE.
[2021-05-18 08:10] VITALS: BP 177/72
--- NOTE | 2021-05-18 15:00 | NUR ---
CM spoke with Pt's dtr via phone. Pt resides at home with dtr, Pt has been staying with dtr since in 2019. Pt struggled with managing her meds and had increased falls at home. Pt is independent with ADLs. Dtr completes IADLs. Pt has a cane that she uses for short distances and a wc for community distances, Pt also has a walker. Per dtr, Pt has chronic low back pain and has a scheduled ablation scheduled for later this year. Hx of [facility] HH. No hx of SNF. Goal is home at dc, no needs anticipated. GI following. Therapies to see. Anticipate dc tomorrow.
[2021-05-18 18:23] VITALS: BP 160/66
--- NOTE | 2021-05-18 19:30 | NUR ---
Assumed care at 0730. Pt is alert and oriented to self and place only. Assessment doen and charted. Pt denied any pain. Pt had EGD and KUB done today. Pt will be having MRI done tomorrow. Pt is more awake this evening compared to the morning time. Pr refused food after her last procedure was done. Pt stated that she think she might vomit after she eats. Blood sugar has been in the 108's. Will continue to provide care for pt.
[2021-05-18 19:47] VITALS: BP 139/64
[2021-05-19 04:00] VITALS: BP 102/46
--- NOTE | 2021-05-19 04:39 | NUR ---
PT A&OX4, FORGETFUL, VSS ON ROOM AIR, IV FLUIDS INFUSING ORDERED. MED/SURG STATUS. NO CO PAIN OR DISCOMFORT THIS SHIFT. PT SLEEPING WELL, REPOSITIONED Q2H. WILL CONTINUE TO MONITOR.
[2021-05-19 08:00] VITALS: BP 136/56
[2021-05-19 08:29] LABS: HEMATOCRIT 37.1 % (37.0-47.0); MCH 29.7 pg (26.0-34.0); MCHC 33.5 g/dL (28.0-37.0); MCV 88.6 fL (80.0-100.0); MPV 8.8 fl. (7.2-11.1); RBC 4.19 mil/uL (4.20-5.00); RDW-CV 15.1 % (10.5-14.5); WBC 7.9 thou/uL (4.0-11.0)
[2021-05-19 08:52] LABS: HEMOGLOBIN 12.4 gm/dL (12.0-15.0)
[2021-05-19 09:18] LABS: CALCIUM 8.1 mg/dL (8.5-10.1); CREATININE 1.9 mg/dL (0.6-1.3)
[2021-05-19 09:29] LABS: POTASSIUM 2.9 mmol/L (3.5-5.1)
--- NOTE | 2021-05-19 09:32 | EKG ---
[place] [address] ELECTROCARDIOGRAM REPORT Name: JAIRONTERESA Room: [address] M.R.#: [id number] Admission: 05/18/21 Attend Phys: Manish Blunt Discharge: Date of : 42 Date of Service: 05/17/21 2144 Report #: [id number] THIS REPORT FOR: //name// [facility] ED Test Date: 2021-05-17 Test Time: 21:44:58 Pat Name: TERESA DE LA O Department: Room: [address] Gender: F Country Director: [place] : 1940 Requested By: Smitha Harding Order Number: [id number] MD: Lamberto George Measurements Intervals [place] Rate: 91 P: 201 [place]: 143 QRS: 8 QRSD: 116 T: 105 QT: 378 QTc: 466 Interpretive Statements Sinus or ectopic atrial rhythm Probable left atrial enlargement Low voltage, extremity leads Nonspecific T abnormalities, lateral leads Compared to ECG 04/03/2021 14:20:1 Low QRS voltage now present T-wave abnormality now present Electronically Signed On 05-19-2021 9:32:09 CDT by Lamberto George [email or web address] <ELECTRONICALLY SIGNED> By: Lamberto George MD, [facility] 05/19/21931 43 43 Lamberto George MD, [facility] /EPI
[2021-05-19] MEDS ORDERED: ERY-TAB250 MG PO (10:45)
[2021-05-19] MEDS ORDERED: CARAFATE 1 GM TA1 G1 PO (10:45)
[2021-05-19] MEDS ORDERED: PROTONIX40 M2 PO (10:45)
[2021-05-19 13:51] VITALS: BP 136/56
--- NOTE | 2021-05-19 13:55 | NUR ---
Plan dc to home today, no needs.
--- NOTE | 2021-05-19 16:06 | NUR ---
Assumed care at 0730. Pt is alert and oirented to self, place, situation. Pt was more awake this morning. Pt ate breakfast but did not eat lunch because she thinks that she would not tolerate it. Pt is medsurg status. Pt still complaining of nausea but not vomitting. Daughter came by to after patient was slated for discharge, patient's daughter did not fell like has made improvement to go home. Patient's daugter refused her mother's discharge.
[2021-05-19 17:17] VITALS: BP 161/65
[2021-05-19 20:00] VITALS: BP 148/93
--- NOTE | 2021-05-19 20:00 | NUR ---
RECEIVED REPORT AND ASSUMED CARE OF PT, ASSESSMENT COMPLETED. PT PLEASANT, ALERT AND ORIENTED. MOVING SELF IN BED. NO DIFFICULTY WITH SWALLOWING. WILL CONT TO MONITOR AND ASSIST NEEDED.
[2021-05-20 02:06] LABS: GLYCOHEMOGLOBIN (HGB A1C) 7.3 % (4.8-5.6)
[2021-05-20 04:00] VITALS: BP 125/40
[2021-05-20 06:34] LABS: MAGNESIUM 2.4 mg/dL (1.8-2.4)
[2021-05-20 06:54] LABS: POTASSIUM 4.9 mmol/L (3.5-5.1)
--- NOTE | 2021-05-20 07:01 | NUR ---
SLEPT WELL TONIGHT. PT ABLE TO TURN IN BED AND ALSO ASKING FOR ASSIST. STATES SHE HAS BACK PROBLEMS AND NEXT MONTH SEES ORTHOPEDIC TRANSFERS WITH MIN ASSIST TO [facility]. HS GOALS OF REST AND SAFETY ACHIEVED.
[2021-05-20 08:42] VITALS: BP 120/53
[2021-05-20 08:45] VITALS: BP 120/53
--- NOTE | 2021-05-20 14:21 | NUR ---
Assumed care at 0730. Pt is alert and oriented. Assessment done and charted. Pt doing much better today compared to when she first came in. Pt still complaining about mild stomach discomfort. At 1300, pt was discharge. Pt's daughter here to take her home. Pt's jewelry was retrieved from the security. IV was taking out. Discharge instruction was given to the patient and the family. Pt and her daughter left at 1310.
--- NOTE | 2021-05-22 14:06 | PATH ---
[address] [address] PATHOLOGY RPT PROCEDURE Name: GEORGETTE DE LA O Room: [address] Minerva Stearns#: [id number] Admission: 05/18/21 Date of : 42 Discharge: 05/20/21 Report #: [id number] Path Case #: [id number] [facility] Accession Number: [id number] . 01 Material submitted: . gastrointestinal site - MILD GASTRITIS BIOPSY TO R/O H. PYLORI . 01 Clinical history: . EGD IN OR GI BLEED, N/V . 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 (SANDRA:humera; 05/22/2021) . Special stain: H. pylori immuno QMS 05/22/2021 1138 Local . 02 Electronically signed: . Flo Cobb MD, Pathologist NPI- [id number] . 01 Gross description: . The specimen is submitted in formalin, labeled "Georgette De La O, mild gastritis biopsy". Received are 3 segments of pale mcarthur tissue ranging in size from 0.2 to 0.4 cm in maximum dimensions. The specimen is submitted entirely in cassette A1. ([facility]; 05/19/2021) NRI/NRI 05/19/2021 2147 Local . 02 Pathologist provided ICD-10: K29.50 . 02 CPT . 231399, L01401 Specimen Comment: A courtesy copy of this report has been sent to [phone] Specimen Comment: [phone], Specimen Comment: Report sent to , DR ANDERSON / DR MARADIAGA Performed at: [address] [id number] MD Adelfo Lares MD Phone: [phone] [facility]formed at: [facility] [address] [place], [place] [id number] [place] [address] PATHOLOGY RPT PROCEDURE Name: JAIRONDORIANGEORGETTE E Room: [address] Minerva Stearns#: [id number] Admission: 05/18/21 Date of : 42 Discharge: 05/20/21 Report #: [id number] Path Case #: [id number] MD Flo Cobb MD Phone: [phone]
== END 2021-05-20 11:39 | disposition home or self-care (01) ==
LOC: M.ERS 21:38 → M.2W 05-18 01:13 → M.TBA-ER 05-18 01:13 → M.2W 05-18 03:14
PROVIDERS: Emergency Medicine; Family Medicine; Internal Medicine Gastroenterology; ADMIT Internal Medicine; ATTEND Internal Medicine
DX: K29.70 Gastritis, unspecified, without bleeding (principal); I85.00 Esophageal varices without bleeding; K44.9 Diaphragmatic hernia without obstruction or gangrene; Z20.822 Contact with and (suspected) exposure to COVID-19; G93.41 Metabolic encephalopathy; I16.0 Hypertensive urgency; R11.2 Nausea with vomiting, unspecified; R47.01 Aphasia; R51.9 Headache, unspecified; E87.6 Hypokalemia; E83.42 Hypomagnesemia; E11.9 Type 2 diabetes mellitus without complications; E86.0 Dehydration; E78.5 Hyperlipidemia, unspecified; I10 Essential (primary) hypertension; E03.9 Hypothyroidism, unspecified; E66.9 Obesity, unspecified; Z68.31 Body mass index [BMI] 31.0-31.9, adult; Z79.899 Other long term (current) drug therapy

== ENCOUNTER 2021-06-12 14:30 | Inpatient (IN) | payer OTHER ==
[~2021-06-12] VITALS: Ht 170.2 cm; Wt 96.4 kg
[~2021-06-12 14:30] MED LIST changes: +CARAFATE 1 GM TA1 G1 PO; +ERY-TAB250 MG PO
[2021-06-12 15:20] LABS: HEMATOCRIT 46.1 % (37.0-47.0); HEMOGLOBIN 15.6 gm/dL (12.0-15.0); MCH 29.8 pg (26.0-34.0); MCHC 33.7 g/dL (28.0-37.0); MCV 88.2 fL (80.0-100.0); MPV 8.2 fl. (7.2-11.1); NUCLEATED RBCS 0 /100WBC; PLATELET COUNT* 363 thou/uL (150-400); RBC 5.23 mil/uL (4.20-5.00); RDW-CV 14.8 % (10.5-14.5); WBC 12.7 thou/uL (4.0-11.0)
[2021-06-12 15:21] LABS: BE 5.2 mmol/L (-2 to +3); PCO2 VENOUS 33.7 mmHg (41.0-51.0)
[2021-06-12 15:41] LABS: CALCIUM 9.4 mg/dL (8.5-10.1); CREATININE 1.4 mg/dL (0.6-1.3)
[2021-06-12 15:47] LABS: URINE BLOOD 2+ (Negative); URINE CLARITY CLEAR; URINE COLOR YELLOW; URINE GLUCOSE-RANDOM NEGATIVE (Negative); URINE KETONES 1+ (Negative); URINE LEUKOCYTES-REFLEX NEGATIVE (Negative); URINE NITRITE-REFLEX NEGATIVE (Negative); URINE PROTEIN 3+ (Negative); URINE UROBILINOGEN 0.2 E.U./dl (0.2-1.0)
[2021-06-12 15:50] LABS: ICTOTEST (BILI CONFIRMATORY) Negative (Negative); URINE BILIRUBIN 1+ (Negative)
[2021-06-12 15:51] LABS: ALBUMIN 3.2 g/dL (3.4-5.0); TOTAL BILIRUBIN 0.7 mg/dL (<0.1-1.0); TOTAL PROTEIN 7.7 g/dL (6.4-8.2)
[2021-06-12 15:53] LABS: POTASSIUM 2.7 mmol/L (3.5-5.1)
[2021-06-12 15:58] LABS: ABSOLUTE LYMPHOCYTES 1.1 thou/uL (0.8-5.3); ABSOLUTE MONOCYTES 0.4 thou/uL (0.0-1.2); ABSOLUTE NEUTROPHILS 11.2 thou/uL (1.6-8.1); PLATELET ESTIMATE ADEQUATE
[2021-06-12 16:01] LABS: CRYSTALS None Seen /LPF (None Seen); HYALINE CASTS 4-10 Moderate /LPF (None Seen); MUCUS None Seen strn/LPF (None Seen); SQUAMOUS 0-3 Few /LPF (0-3)
[2021-06-12 16:02] LABS: BACTERIA-REFLEX 1-9 Few /HPF (None Seen); URINE RBC 0-2 Rare /HPF (0-2); URINE WBC-REFLEX None Seen /HPF (0-5)
--- NOTE | 2021-06-12 16:28 | EKG ---
[place] [address] ELECTROCARDIOGRAM REPORT Name: TERESA DE LA O Room: [place] [address] ADM IN M.R.#: [id number] Admission: 06/12/21 Attend Phys: Pawel Alvarado Discharge: Date of : 42 Date of Service: 06/12/21 1553 Report #: [id number] THIS REPORT FOR: //name// [facility] ED Test Date: 2021-06-12 Test Time: 15:53:11 Pat Name: TERESA DE LA O Department: Room: [facility] Gender: F Blunger Loader: [place] : 1940 Requested By: Herbert Arias Order Number: [id number] MD: Mack Leone Measurements Intervals [place] Rate: 83 P: [place]: QRS: 42 QRSD: 97 T: 10 QT: 397 QTc: 467 Interpretive Statements sinus rhythm nonspecific st segment changes poor r wave progression Compared to ECG 05/17/2021 21:44:58 no change Electronically Signed On 06-12-2021 16:27:56 CDT by Mack Leone [email or web address] <ELECTRONICALLY SIGNED> By: Mack Leone MD, [facility]ACC 06/12/21 1627 1553 1553 Mack Leone MD, [facility] /EPI
[2021-06-12 18:36] VITALS: BP 191/112
[2021-06-12 20:00] VITALS: BP 212/95
[2021-06-12 23:30] VITALS: BP 212/95
[2021-06-12 23:45] VITALS: BP 180/98
[2021-06-13 04:00] VITALS: BP 132/68
[2021-06-13 07:01] LABS: HEMATOCRIT 39.1 % (37.0-47.0); MCH 29.5 pg (26.0-34.0); MCHC 33.5 g/dL (28.0-37.0); MCV 88.2 fL (80.0-100.0); MPV 8.6 fl. (7.2-11.1); RBC 4.43 mil/uL (4.20-5.00); RDW-CV 14.7 % (10.5-14.5)
[2021-06-13 07:07] LABS: HEMOGLOBIN 13.1 gm/dL (12.0-15.0)
[2021-06-13 07:38] LABS: ALBUMIN 2.5 g/dL (3.4-5.0); CALCIUM 8.1 mg/dL (8.5-10.1); CREATININE 1.4 mg/dL (0.6-1.3); MAGNESIUM 1.3 mg/dL (1.8-2.4); TOTAL BILIRUBIN 0.4 mg/dL (<0.1-1.0); TOTAL PROTEIN 6.1 g/dL (6.4-8.2)
[2021-06-13 07:42] LABS: POTASSIUM 2.7 mmol/L (3.5-5.1)
[2021-06-13 08:05] VITALS: BP 146/76
[2021-06-13 09:00] VITALS: BP 180/69
[2021-06-13 10:19] LABS: CALCIUM 8.4 mg/dL (8.5-10.1); CREATININE 1.3 mg/dL (0.6-1.3)
[2021-06-13 10:22] LABS: PHOSPHORUS* 3.3 mg/dL (2.5-4.9)
[2021-06-13 10:30] LABS: POTASSIUM 2.6 mmol/L (3.5-5.1)
[2021-06-13 12:38] VITALS: BP 168/68
[2021-06-13 16:47] VITALS: BP 140/60
[2021-06-14] VITALS (7 sets, daily range): BP systolic 111–202; BP diastolic 40–82
[2021-06-15] VITALS: BP 195/62
[2021-06-15 04:53] VITALS: BP 160/80
[2021-06-15 08:25] VITALS: BP 179/86
[2021-06-15 08:55] VITALS: BP 194/93
[2021-06-15] MEDS ORDERED: CEFDINIR300 MG PO (10:45)
[2021-06-15 12:00] VITALS: BP 167/91
== END 2021-06-15 15:04 | disposition home or self-care (01) | DRG 872 ==
LOC: M.ERS 14:30 → M.2W 16:20 → M.TBA-ER 16:20 → M.2W 19:26
PROVIDERS: Family Medicine; Internal Medicine; ADMIT Internal Medicine; ATTEND Internal Medicine
PROC: B548ZZA Ultrasonography of Superior Vena Cava, Guidance (ICD-10-PCS; principal; 2021-06-12)
PROC: 02HV33Z Insertion of Infusion Device into Superior Vena Cava, Percutaneous Approach (ICD-10-PCS; principal; 2021-06-12)
DX: A41.9 Sepsis, unspecified organism (principal); N39.0 Urinary tract infection, site not specified; E44.0 Moderate protein-calorie malnutrition; I50.30 Unspecified diastolic (congestive) heart failure; I13.0 Hypertensive heart and chronic kidney disease with heart failure and stage 1 through stage 4 chronic kidney disease, or unspecified chronic kidney disease; N18.30 Chronic kidney disease, stage 3 unspecified; Z20.822 Contact with and (suspected) exposure to COVID-19; M19.90 Unspecified osteoarthritis, unspecified site; M10.9 Gout, unspecified; E78.5 Hyperlipidemia, unspecified; E87.6 Hypokalemia; E86.0 Dehydration; E03.9 Hypothyroidism, unspecified; E66.9 Obesity, unspecified; E11.22 Type 2 diabetes mellitus with diabetic chronic kidney disease; Z90.710 Acquired absence of both cervix and uterus; Z79.82 Long term (current) use of aspirin; Z79.899 Other long term (current) drug therapy; Z68.33 Body mass index [BMI] 33.0-33.9, adult; Z85.841 Personal history of malignant neoplasm of brain; Z92.3 Personal history of irradiation